=== PATIENT | male | born 1995 | race Caucasian/White ===

== ENCOUNTER 2021-03-11 07:34 | Day surgery (SDC) | payer MEDICAID, SELFPAY ==
[~2021-03-11] VITALS: Ht 175.3 cm; Wt 154.2 kg
[2021-03-11] MEDS ORDERED: MEPERIDINE 100 MG INJ. 100 MG/ML VIAL ONE (08:06)
[2021-03-11] MEDS ORDERED: MIDAZOLAM HCL 5 MG/5 ML VIAL ONE (08:06)
[2021-03-11 12:20] VITALS: BP_SYST 120
== END 2021-03-11 11:20 | disposition home or self-care (01) ==
LOC: SDS 07:34 → SMU 07:40 → SDS 11:20
PROVIDERS: ATTEND Internal Medicine Gastroenterology
DX: R10.9 Unspecified abdominal pain (principal); K29.50 Unspecified chronic gastritis without bleeding; K64.8 Other hemorrhoids; K44.9 Diaphragmatic hernia without obstruction or gangrene; I10 Essential (primary) hypertension; E78.00 Pure hypercholesterolemia, unspecified; R03.0 Elevated blood-pressure reading, without diagnosis of hypertension; Z79.899 Other long term (current) drug therapy; Z20.822 Contact with and (suspected) exposure to COVID-19
CPT/HCPCS: 36415 ×2; 43239; 87081; 87426; 88305; 88312; 88313; 99152; G0378; J2175; J2250